=== PATIENT | male | born 1990 | race Caucasian/White ===

== ENCOUNTER 2016-09-14 20:22 | Emergency (ER) | payer BC, OTHER ==
--- NOTE | 2016-09-14 23:02 | ED NURSING NOTES ---
Clinical Report - Nurses [facility] [address] [place] [address] 09/14/2016 20:24 Patient: ARELY AUSTIN TRIAGE Triage time 20:Sep 14 2016. Acuity: LEVEL 3. Chief Complaint: SEIZURE (single episode). Alert. DUSTY COMA SCORE: [place] Coma Scale: 15- eyes open spontaneously (4); best verbal response- oriented x 4 (5); best motor response- obeys commands (6). --20:38 Jack Marcus R.N. 20:26 09/14/16. BP: 124/75. HR: 74. RR: 19. O2 saturation: 100% on room air. Temp: 98.5 F. Pain level now: 10. Additional comments: Abdominal Pain. --20:38 Jack Marcus R.N. Weight: 70.3 kg stated. Height/Length: 67 inches Per Patient. BMI: 24.3. --20:37 Jack Marcus R.N. Medications MiraLax Oral 1 tablespoon (just started today). --20:33 Jack Marcus R.N. Medication/allergy information source: the patient. --20:38 Jack Marcus R.N. Allergies Unknown. --23:15 Shagufta Silva. History Arrived by EMS. Historian: patient. Accompanied by mother. Primary physician (none). ( Seizure at the dinner table tonight. Pt states that he had one previous seizure 6 years ago. Mother states that pt developed a glazed look and appeared pale and was rubbing his stomach. Family state that the event lasted about 20 seconds.). This occurred just prior to arrival and today (about 45 minutes ago). Patient was last known well (about one hour ago). No injuries. He has recently been ill (abdominal pain). 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 PAST MEDICAL HX: Seizures. Immunizations: status is unknown. SOCIAL HX: Smoker- current status unknown (cigarette). Alcohol use; consumes one liquor. (once or twice per month). History of drug use: marijuana. (Daily). No infectious disease exposure. ABUSE ASSESSMENT: No report of abuse. FALL RISK ASSESSMENT: Fall risk assessment completed. No fall risk identified. NUTRITIONAL RISK ASSESSMENT: The nutritional risk assessment revealed no deficiencies. FUNCTIONAL ASSESSMENT: Functional assessment: no impairments noted. LEARNING NEEDS ASSESSMENT: The learning needs assessment revealed no barriers. SKIN INTEGRITY ASSESSMENT: Skin integrity risk assessment completed. No skin integrity risk identified. --20:38 Jack Marcus R.N. PROBLEMS: Seizure. --20:35 Jack Marcus R.N. ADDITIONAL SURGERIES: Hernia Repair. --20:35 Jack Marcus R.N. Interventions ID band on patient. To treatment room. --20:38 Jack Marcus R.N. PHYSICAL ASSESSMENT Ambulatory to room. GENERAL / NEURO / PSYCH: Alert. Oriented X 4. Speech within normal limits. Patient appears well-nourished. HEENT: No facial asymmetry noted. Mucous membranes are pink. RESPIRATORY: Respirations not labored. CVS: Normal sinus rhythm noted. GI / : Abdomen soft. Abdominal tenderness in the left upper quadrant. SKIN: Skin intact. Skin is warm and dry. Normal skin turgor. --20:39 Jack Marcus R.N. NURSING PROGRESS NOTES Patient gowned. Reassurance given. Patient identifiers checked. Call light placed in reach. Side rails up. Bed placed in lowest position. Brakes of bed on. Patient ready for evaluation- chart flagged and ED physician notified. --20:40 Jack Marcus R.N. 20:52 09/14/2016 Site #1 started prior to arrival by EMS via IV in the right antecubital space with an 20g angiocath, with aseptic technique and good blood return. Blood drawn: rainbow set. Labeled in the presence of the patient and sent to the lab. Saline lock flushed with 10 mL saline. --21:02 Jack Marcus R.N. EKG time: (8:59 PM). EKG was performed by a tech and shown to the ED physician. --21:02 Qamar Montilla transferred and report received. --21:20 Shagufta Silva 21:19 09/14/16. BP: 116/71. HR: 75. RR: 19 (regular and unlabored). O2 saturation: 96% on room air. Pain level now: 0/10. --21:20 Shagufta Silva 22:22 09/14/2016 Started bag #1 1000 mL IV Fluids IV NS (Saline); at 1000 mL/hr over 1 hour(s) via site #1 via IV pump. Allergies verified and confirmed 5 rights. IV patency established. IV site checked: no pain, redness, or swelling. IV flushed thoroughly pre- and post-medication administration. --22:22 Shagufta Silva 22:22 09/14/16. BP: 108/58. HR: 60. RR: 14. O2 saturation: 97% on room air. Pain level now: 0/10. --22:22 Shagufta Silva 22:35 09/14/16. BP: 102/57 taken while lying. HR: 49. RR: 17 (unlabored). O2 saturation: 97% on room air. --22:37 Qamar Montilla 22:37 09/14/16. BP: 103/67 taken while sitting. HR: 56. RR: 15. O2 saturation: 97% on room air. --22:38 Qamar Montilla 22:39 09/14/16. BP: 113/67 taken while standing. HR: 58. RR: 13. O2 saturation: 97% on room air. --22:39 Qamar Montilla 23:14 09/14/2016 IV Fluids IV NS Discontinued: bag #1 discontinued upon discharge. Total amount infused: 800 mL. IV patency established. IV site checked: no pain, redness, or swelling. IV flushed thoroughly. --23:15 Shagufta Silva 23:15 09/14/2016 Site #1 removed upon discharge. Catheter intact. Pressure dressing applied. --23:15 Shagufta Silva 23:15 09/14/2016 IV Saline Lock Drip IV Discontinued: bag #1 infused. Total amount infused: 0 mL. --23:15 Shagufta Silva. DISPOSITION / DISCHARGE 23:09/14/16. Departure time: 23:Sep 14 2016. Condition at departure: improved. The goals identified in the patient's plan of care were met. No learning barriers present. Discharge instructions provided and reviewed with the patient and family. Reviewed warnings (Patient verbalized awareness of warning s/sx listed in dc paperwork.). Reviewed medication(s) side effects, precautions, dosing and course information. Prescription(s) given to the patient (GoLytely, carafate, prilosec). Treatments reviewed. Reviewed referral to a primary care physician for followup. Patient verbalized understanding. Written instructions provided in Estonian. The patient was discharged by the physician. He was discharged home and accompanied by parent and family. He left the Emergency Department ambulatory and via private vehicle. Parent driving. FALL RISK ASSESSMENT: Fall risk assessment completed. No fall risk identified. --23:14 Shagufta Silva 23:12 09/14/16. BP: deferred. HR: deferred. RR: deferred. O2 saturation: deferred. Temp: deferred. Pain level now deferred. --23:14 Shagufta Silva. Locked/Released at 09/14/2016 23:35 by Shagufta Silva,
--- NOTE | 2016-09-14 23:02 | ED ORDER SUMMARY ---
..... Patient: ARELY AUSTIN OrderSheet [facility] VisitID: [id number] [address] [place] [address] 26y, M Registration Date/Time: 09/14/2016 ORDER SHEET Weight: 70.3 kg (stated) Allergies: Unknown GENERAL ORDERS: Virtual Customer Assistant (Continuous) (Seizure) (20:58 09/14/2016 Jaylene R.N. verbal order read back to Milton MUNIZ) (21:00 Opheliaelli R.N.) CMP Urgent (21:00 09/14/2016 Jaylene R.N. verbal order read back to Milton MUNIZ) (21:00 Jaylene R.N.) (Cancelled: Other21:50 Milton MUNIZ) UA-Culture if indicated Urgent (21:00 09/14/2016 Jaylene R.N. verbal order read back to Milton MUNIZ) (21:00 Opheliaelli R.N.) Pulse oximeter (21:00 09/14/2016 Jaylene R.N. verbal order read back to Milton MUNIZ) (21:00 Opheliaelli R.N.) EKG - ER Stat (21:00 09/14/2016 Jaylene R.N. verbal order read back to Milton MUNIZ) (21:00 omanelli R.N.) (21:02 SRedmond) Cardiac Panel Stat (21:50 09/14/2016 Milton MUNIZ) (Ack 21:53 ALawrence ER Tech1) (21:54 ALawrence ER Tech1) TSH Urgent (21:50 09/14/2016 Mitlon MUNIZ) (Ack 21:53 ALawrence ER Tech1) (21:54 ALawrence ER Tech1) Chest 2V Urgent (21:50 09/14/2016 Milton MUNIZ) (Ack 21:53 ALawrence ER Tech1) (22:14 MCampbell) Abdomen 1V Upright Urgent (21:50 09/14/2016 Milton MUNIZ) (Ack 21:53 ALawrence ER Tech1) (22:14 MCampbell) - (Orthostatics) (22:10 09/14/2016 Milton MUNIZ) (Ack 22:27 ALawrence ER Tech1) (22:35 [facility]) MEDICATION ORDERS: IV FLUIDS: IV Saline Lock (21:00 09/14/2016 Jaylene R.NKatharine verbal order read back to Milton MUNIZ) (21:02 Jaylene Cason) IV NS : initial bolus 1000 mL (1000 mL/hr), then none - for X1 (NOW); Routine (21:51 09/14/2016 Milton MUNIZ) (Ack 21:55 [facility] (22[facility] ORDER SHEET NOTES: [Electronically signed by Shagufta Silva (23:35 09/14/2016)] [Electronically signed by Mario Diego MD (21:40 09/15/2016)] [Electronically locked/signed by Shagufta Silva (23:35 09/14/2016)]
--- NOTE | 2016-09-14 23:02 | ED CLINICAL REPORT ---
Clinical Report - Physicians/Mid Levels Merged With [facility] [address] [place] [address] 09/14/2016 20:24 Patient: ARELY AUSTIN Time Seen: 21:45 Sep 14 2016. Historian- patient and family. CPT: ER phys charges level 4 (#[id number]). HISTORY OF PRESENT ILLNESS The patient has recovered. Chief Complaint: SINGLE SYNCOPAL EPISODE. This occurred just prior to arrival. Event was witnessed. (Says he passed out, went limp and had a few movements of the arms. Was pale. Lasted a minute then he woke right up and was asking what happened. No post-ictal symptoms.). Witnessed by family member. At time of event, he was sitting. The patient felt faint and collapsed. Brief seizure activity observed involving the right upper extremity and left upper extremity (minimal). The patient had preceding symptoms of light-headedness, dim vision, warmth and abdominal pain. He had preceding symptoms of moderate nausea (with diaphoresis.). Had a single episode. The episode was brief. No injuries noted. Currently he feels normal. Similar symptoms previously: Once (5 years ago). ( Did not see MD). Recent medical care: Not recently seen/assessed. REVIEW OF SYSTEMS No headache, dizziness, weakness, chest pain or palpitations. No vomiting, diarrhea, black stools, numbness or bloody stools. No fever, sore throat, difficulty breathing, difficulty with urination or skin rash. No enlarged lymph nodes or cough. The patient has had abdominal pain. Constipation on and off for the past year. Used caffeine to promote bowels and recently stopped all caffeine 5 days ago and has not had a BM since. Del had LUQ abdominal pain just prior to his spell. He notes this pain on and off and it seems to improve with eating. No hx of PUD but he suspects that may be what he had in the past. Recently started miralax. All systems otherwise negative, except as recorded above. PAST HISTORY GI disease. No history of seizure, heart disease, lung disease, renal disease or neurological disease. Has not had GI bleeding. No history of dysrhythmia. Medications: MiraLax Oral 1 tablespoon (just started today). SOCIAL HISTORY Light tobacco smoker (cigarette)- less than 1/2 a pack per day. Alcohol use. History of drug use: marijuana. ADDITIONAL NOTES The nursing notes have been reviewed. PHYSICAL EXAM Vital Signs: 09/14/2016 20:26 BP: 124/75. HR: 74. RR: 19. O2 saturation: 100%. Temp: 98.5 F. Pain level now: 310. Appearance: Alert. No acute distress. Eyes: Pupils equal, round and reactive to light. No nystagmus. Extraocular movements normal. ENT: Normal ENT inspection. TM's normal. Moist mucous membranes. Pharynx normal. Neck: Normal inspection. Neck supple. CVS: Normal heart rate and rhythm. Heart sounds normal. Pulses normal. Respiratory: No respiratory distress. Breath sounds normal. Abdomen: Soft and nontender. No mass present. Back: Normal inspection. Skin: Skin warm. Normal skin color. No rash. Extremities: Extremities exhibit normal ROM. No lower extremity edema. Neuro: Alert. Oriented X 3. Mood/affect normal. Speech normal. Cranial nerves normal (as tested). No cerebellar findings. No motor deficit. No sensory deficit. Reflexes normal. LABS, X-RAYS, AND EKG EKG: Normal sinus rhythm. Normal P waves. Normal QRS complex. Normal axis. Non-specific ST segment / T wave abnormalities. Prior EKG unavailable. The study has been interpreted contemporaneously. The study has been independently viewed by me. The EKG appears to be a good tracing. Chest X-ray: Normal Chest X-Ray. KUB: (Moderate stool). Views: erect AP. Technique: good. The X-rays were independently viewed by me. Prior films were not available for comparison. Laboratory Tests: CBC w Diff: (BENOIT: 09/14/2016 20:45) ( MsgRcvd 09/14/2016 22:21) Final results Test Result Flag Units (Reference) WHITE BLOOD COUNT 6.2 K/uL (4.5-11.5) RED BLOOD COUNT 4.89 M/uL (4.50-5.90) HEMOGLOBIN 14.9 gm/dL (13.5-17.5) HEMATOCRIT 43.3 % (41.0-53.0) MEAN CELL VOLUME 88 fL (80-100) MEAN CORPUSCULAR HGB 30 pg (26-34) MEAN CORPUSCULAR HGB CONC 34 g/dL (31-37) RED CELL DISTRIBUTION WIDTH 12.6 % (11.6-14.8) PLATELET COUNT 191 K/uL (150-400) NEUTROPHIL % 46.5 L % (50-75) LYMPH % 45.6 H % (25-40) MONO % 6.3 % (3-14) EOSINOPHIL % 1.0 % (0-4) BASOPHIL % 0.6 % (0-2) CHEM 13 PANEL: (BENOIT: 09/14/2016 20:45) ( MsgRcvd 09/14/2016 22:51) IP Test Result Flag Units (Reference) GLUCOSE 106 mg/dL (70-110) BUN 10 mg/dL (7-18) CREATININE 0.8 mg/dL (0.6-1.3) Estimated GFR >60 mL/min Estimated GFR- >60 mL/min Note: Persistent reduction over 3 months in eGFR<60 mL/min/1.73 m2 defines CKD. Patients with eGFR values>=60 mL/min/1.73 m2 may also have CKD if evidence ofpersistent proteinuria. Additional information may be foundat www.[email or web address]. SODIUM 142 mmol/L (136-145) POTASSIUM 4.0 mmol/L (3.5-5.1) CHLORIDE 103 mmol/L (98-107) CARBON DIOXIDE 28 mmol/L (21-32) CALCIUM 9.2 mg/dL (8.5-10.1) TOTAL PROTEIN 7.3 g/dL (6.4-8.2) ALBUMIN 4.2 g/dL (3.3-5.0) BILIRUBIN, TOTAL 0.9 mg/dL (0.0-1.0) ALKALINE PHOSPHATASE 65 U/L (46-116) AST (SGOT) 13 L U/L (15-37) ALT (SGPT) 20 U/L (12-78) MAGNESIUM 1.8 mg/dL (1.8-2.4) CPK 75 U/L (24-260) TROPONIN I <0.05 ng/mL (0.00-1.5) TROPONIN REFERENCE RANGE:<0.1 NEGATIVE0.1-1.5 INDETERMINANT>1.5 POSITIVE CMP: (BENOIT: 09/14/2016 20:45) ( MsgRcvd 09/14/2016 21:23) Final results Test Result Flag Units (Reference) GLUCOSE 105 mg/dL (70-110) BUN 9 mg/dL (7-18) CREATININE 0.8 mg/dL (0.6-1.3) Estimated GFR >60 mL/min Estimated GFR- >60 mL/min Note: Persistent reduction over 3 months in eGFR<60 mL/min/1.73 m2 defines CKD. Patients with eGFR values>=60 mL/min/1.73 m2 may also have CKD if evidence ofpersistent proteinuria. Additional information may be foundat [email or web address]. SODIUM 138 mmol/L (136-145) POTASSIUM 3.7 mmol/L (3.5-5.1) CHLORIDE 102 mmol/L (98-107) CARBON DIOXIDE 25 mmol/L (21-32) CALCIUM 8.9 mg/dL (8.5-10.1) TOTAL PROTEIN 7.3 g/dL (6.4-8.2) ALBUMIN 4.0 g/dL (3.3-5.0) BILIRUBIN, TOTAL 0.8 mg/dL (0.0-1.0) ALKALINE PHOSPHATASE 59 U/L (46-116) AST (SGOT) 12 L U/L (15-37) ALT (SGPT) 21 U/L (12-78) . PROGRESS AND PROCEDURES Course of Care: IV NS Pt does not likely have a seizure history. He clinically has vasovagal syncope due to GI induced vagal input. Patient/family counseled. Disposition: Discharged. Condition: stable. CLINICAL IMPRESSION Vasovagal syncope .12 lead EKG performed. (Due to transient abdominal pain.). Abdominal pain due to early PUD and constipation. INSTRUCTIONS Drink plenty of fluids. (Lay down if get nausea or sweats. Put legs up. Wait for symptoms to pass.). Warnings: Further evaluation is necessary. GENERAL WARNINGS: Return or contact your physician immediately if your condition worsens or changes unexpectedly, if not improving as expected, or if other problems arise. Your Current Medications: CONTINUE TAKING THE FOLLOWING MEDICATIONS: MiraLax Oral : 1 tablespoon, just started today. Prescription Medications: Carafate 1 gm tablets: take 1 orally four times daily (30 minutes before meals and at bedtime) for 10 days. Dispense forty (40). No refills. Substitution is permissible. Prilosec 40 mg capsules: take 1 capsule orally every day for 10 days. Dispense ten (10). No refill. Substitution is permissible. GoLytely 4 oz every 10 minutes until gone. # 1 jug. Follow-up: Follow up with your doctor in one week. Call for an appointment. Reason for referral: 1 year of constipation that is new. Follow up on pain and results of medications. Understanding of the discharge instructions verbalized by patient and family. (Electronically signed by Mario Diego MD 09/15/2016 21:40)
--- NOTE | 2016-09-14 23:02 | ED ORDER SUMMARY ---
..... Patient: ARELY AUSTIN OrderSheet [facility] VisitID: [id number] [address] [place] [address] 26y, M Registration Date/Time: 09/14/2016 ORDER SHEET Weight: 70.3 kg (stated) Allergies: Unknown GENERAL ORDERS: Key Ringer (Continuous) (Seizure) (20:58 09/14/2016 Jaylene R.N. verbal order read back to Milton MUNIZ) (21:00 Opheliaelli R.N.) CMP Urgent (21:00 09/14/2016 Jaylene R.N. verbal order read back to Milton MUNIZ) (21:00 Jaylene R.N.) (Cancelled: Other21:50 Milton MUNIZ) UA-Culture if indicated Urgent (21:00 09/14/2016 Jaylene R.N. verbal order read back to Milton MUNIZ) (21:00 Opheliaelli R.N.) Pulse oximeter (21:00 09/14/2016 Jaylene R.N. verbal order read back to Milton MUNIZ) (21:00 Opheliaelli R.N.) EKG - ER Stat (21:00 09/14/2016 Jaylene R.N. verbal order read back to Milton MUNIZ) (21:00 omanelli R.N.) (21:02 SRedmond) Cardiac Panel Stat (21:50 09/14/2016 Milton MUNIZ) (Ack 21:53 ALawrence ER Tech1) (21:54 ALawrence ER Tech1) TSH Urgent (21:50 09/14/2016 Milton MUNIZ) (Ack 21:53 ALawrence ER Tech1) (21:54 ALawrence ER Tech1) Chest 2V Urgent (21:50 09/14/2016 Milton MUNIZ) (Ack 21:53 ALawrence ER Tech1) (22:14 MCampbell) Abdomen 1V Upright Urgent (21:50 09/14/2016 Milton MUNIZ) (Ack 21:53 ALawrence ER Tech1) (22:14 MCampbell) - (Orthostatics) (22:10 09/14/2016 Milton MUNIZ) (Ack 22:27 ALawrence ER Tech1) (22:35 [facility]) MEDICATION ORDERS: IV FLUIDS: IV Saline Lock (21:00 09/14/2016 Jaylene R.NKatharine verbal order read back to Milton MUNIZ) (21:02 Jaylene Cason) IV NS : initial bolus 1000 mL (1000 mL/hr), then none - for X1 (NOW); Routine (21:51 09/14/2016 Milton MUNIZ) (Ack 21:55 [facility] ([facility] ORDER SHEET NOTES: [Electronically signed by Shagufta Silva (23:35 09/14/2016)] [Electronically signed by Mario Diego MD (21:40 09/15/2016)] [Electronically locked/signed by Shagufta Silva (23:35 09/14/2016)]
--- NOTE | 2016-09-15 00:22 | DIAGNOSTIC IMAGING REPORT ---
PROCEDURE: XR ABDOMEN 1 VIEW UPRIGHT INDICATION: ABDOMINAL PAIN TECHNIQUE: AP upright view. COMPARISON: None. FINDINGS: Nonspecific bowel gas pattern. Mild stool. No free air, mass or suspicious calcification. Bones are unremarkable. IMPRESSION: 1. Nonspecific bowel gas pattern.
--- NOTE | 2016-09-15 00:22 | DIAGNOSTIC IMAGING REPORT ---
PROCEDURE: XR CHEST 2 VIEW INDICATION: SYNCOPE, initial encounter TECHNIQUE: PA and lateral view. COMPARISON: None. FINDINGS: Lungs are clear. Cardiovascular structures are normal. Bony thorax is unremarkable. IMPRESSION: 1. Negative chest.
--- NOTE | 2016-09-15 21:40 | ED MED RECONCILIATION SUMMARY ---
Patient: ARELY AUSTIN Medication Reconciliation Report [facility] VisitID: [id number] [address] [place] [address] 26y, M Registration Date/Time: 09/14/2016 Weight: 70.3 kg Height/Length: 67 in. BMI: 24.3 ALLERGIES: Unknown The patient's Home Medications are listed below: CONTINUE TAKING THE FOLLOWING MEDICATIONS: MiraLax Oral 1 tablespoon, just started today The source(s) of the original Home Medication information: patient The following Medications were given to the patient in the Emergency Department: IV NS IV Fluids bolus 0, then 1000 mL/hr, administered: 09/14/2016 10:22:00 PM The following Medications were prescribed to the patient: GoLytely 4 oz every 10 minutes until gone. # 1 jug. -- Mario Diego MD Carafate 1 gm tablets: take 1 orally four times daily (30 minutes before meals and at bedtime) for 10 days. Dispense forty (40). No refills. Substitution is permissible. -- Mario Diego MD Prilosec 40 mg capsules: take 1 capsule orally every day for 10 days. Dispense ten (10). No refill. Substitution is permissible. -- Mario Diego MD
--- NOTE | 2016-09-15 21:40 | ED DISCHARGE INSTRUCTIONS ---
Patient: ARELY AUSTIN General Instructions [facility] VisitID: [id number] [address] [place] [address] 26y, M Registration Date/Time: 09/14/2016 Vasovagal syncope .12 lead EKG performed. (Due to transient abdominal pain.). Abdominal pain due to early PUD and constipation. INSTRUCTIONS Drink plenty of fluids. (Lay down if get nausea or sweats. Put legs up. Wait for symptoms to pass.). Warnings: Further evaluation is necessary. GENERAL WARNINGS: Return or contact your physician immediately if your condition worsens or changes unexpectedly, if not improving as expected, or if other problems arise. Your Current Medications: CONTINUE TAKING THE FOLLOWING MEDICATIONS: MiraLax Oral : 1 tablespoon, just started today. Prescription Medications: Carafate 1 gm tablets: take 1 orally four times daily (30 minutes before meals and at bedtime) for 10 days. Dispense forty (40). No refills. Substitution is permissible. Prilosec 40 mg capsules: take 1 capsule orally every day for 10 days. Dispense ten (10). No refill. Substitution is permissible. GoLytely 4 oz every 10 minutes until gone. # 1 jug. Follow-up: Follow up with your doctor in one week. Call for an appointment. Reason for referral: 1 year of constipation that is new. Follow up on pain and results of medications. Understanding of the discharge instructions verbalized by patient and family. ADDITIONAL INFORMATION Fainting:Vagal Reaction Fainting (syncope) is a temporary loss of consciousness ("passing out"). It occurs when blood flow to the brain is reduced. Your doctor believes that your episode was due to a vagal reaction. This condition is not a sign of serious disease. A vagal reaction is a reflex response that causes the pulse to slow down or the blood vessels to dilate. This causes the blood pressure to fall, reducing the blood flow to the brain if you are standing or sitting. That results in dizziness, near-fainting or fainting. Lying down usually stops the reaction within 60 seconds. This reflex response can occur during sudden fear, severe pain, emotional stress, overexertion, overheating, hunger, nausea or vomiting, prolonged standing or standing up after sitting or lying for a long time. Home Care: 1) Rest today and resume your normal activities as soon as you are feeling back to normal. 2) If you become light-headed or dizzy, lie down immediately or sit with your head lowered between your knees. Follow Up with your doctor as instructed. Get Prompt Medical Attention if any of the following occur: -- Another fainting spell occurs, which is not explained by the common causes listed above -- Chest, arm, neck, jaw, back or abdominal pain -- Shortness of breath -- Severe headache or seizure -- Blood in vomit, stools (black or red color) -- Unexpected vaginal bleeding -- Palpitations (very rapid or very slow or irregular heart beat) -- Signs of stroke: Weakness of an arm or leg or one side of the face Difficulty with speech or vision Extreme drowsiness, confusion, dizziness or fainting Sucralfate Oral tablet What is this medicine? SUCRALFATE (CHERELLE ignacio fate) helps to treat ulcers of the intestine. How should I use this medicine? Take this medicine by mouth with a glass of water. Follow the directions on the prescription label. This medicine works best if you take it on an empty stomach, 1 hour before meals. Take your doses at regular intervals. Do not take your medicine more often than directed. Do not stop taking except on your doctor's advice. Talk to your vegetable i farmworker regarding the use of this medicine in children. Special care may be needed. What side effects may I notice from receiving this medicine? Side effects that you should report to your doctor or health foster care therapist as soon as possible: allergic reactions like skin rash, itching or hives, swelling of the face, lips, or tongue difficulty breathing Side effects that usually do not require medical attention (report to your doctor or health foster care therapist if they continue or are bothersome): back pain constipation drowsy, dizzy dry mouth headache stomach upset, gas trouble sleeping What may interact with this medicine? antacid cimetidine digoxin ketoconazole phenytoin quinidine ranitidine some antibiotics like ciprofloxacin, norfloxacin, and ofloxacin theophylline thyroid hormones warfarin What if I miss a dose? If you miss a dose, take it as soon as you can. If it is almost time for your next dose, take only that dose. Do not take double or extra doses. Where should I keep my medicine? Keep out of the reach of children. Store at room temperature between 15 and 30 degrees C (59 and 86 degrees F). Keep container tightly closed. Throw away any unused medicine after the expiration date. What should I tell my health care provider before I take this medicine? They need to know if you have any of these conditions: kidney disease an unusual or allergic reaction to sucralfate, other medicines, foods, dyes, or preservatives or trying to get breast-feeding What should I watch for while using this medicine? Visit your doctor or health foster care therapist for regular check ups. Let your doctor know if your symptoms do not improve or if you feel worse. Antacids should not be taken within one half hour before or after this medicine. Omeprazole Magnesium Gastro-resistant tablet What is this medicine? OMEPRAZOLE (oh ME pray zol) prevents the production of acid in the stomach. It is used to treat the symptoms of heartburn. You can buy this medicine without a prescription. This product is not for long-term use, unless otherwise directed by your doctor or health foster care therapist. How should I use this medicine? Take this medicine by mouth. Follow the directions on the product label. If you are taking this medicine without a prescription, take one tablet every day. Do not use for longer than 14 days or repeat a course of treatment more often than every 4 months unless directed by a doctor or healthcare professional. Take your dose at regular intervals every 24 hours. Swallow the tablet whole with a drink of water. Do not crush, break or chew. This medicine works best if taken on an empty stomach 30 minutes before breakfast. If you are using this medicine with the prescription of your doctor or healthcare professional, follow the directions you were given. Do not take your medicine more often than directed. Talk to your vegetable i farmworker regarding the use of this medicine in children. Special care may be needed. What side effects may I notice from receiving this medicine? Side effects that you should report to your doctor or health foster care therapist as soon as possible: allergic reactions like skin rash, itching or hives, swelling of the face, lips, or tongue bone, muscle or joint pain breathing problems chest pain or chest tightness dark yellow or brown urine diarrhea dizziness fast, irregular heartbeat feeling faint or lightheaded fever or sore throat muscle spasm palpitations redness, blistering, peeling or loosening of the skin, including inside the mouth seizures tremors unusual bleeding or bruising unusually weak or tired yellowing of the eyes or skin Side effects that usually do not require medical attention (Report these to your doctor or health foster care therapist if they continue or are bothersome.): constipation dry mouth headache loose stools nausea What may interact with this medicine? Do not take this medicine with any of the following medications: atazanavir clopidogrel nelfinavir This medicine may also interact with the following medications: ampicillin certain medicines for anxiety or sleep certain medicines that treat or prevent blood clots like warfarin cyclosporine diazepam digoxin disulfiram iron salts phenytoin prescription medicine for fungal or yeast infection like itraconazole, ketoconazole, voriconazole saquinavir tacrolimus What if I miss a dose? If you miss a dose, take it as soon as you can. If it is almost time for your next dose, take only that dose. Do not take double or extra doses. Where should I keep my medicine? Keep out of the reach of children. Store at room temperature between 20 and 25 degrees C (68 and 77 degrees F). Protect from light and moisture. Throw away any unused medicine after the expiration date. What should I tell my health care provider before I take this medicine? They need to know if you have any of these conditions: black or bloody stools chest pain difficulty swallowing have had heartburn for over 3 months have heartburn with dizziness, lightheadedness or sweating liver disease stomach pain unexplained weight loss vomiting with blood wheezing an unusual or allergic reaction to omeprazole, other medicines, foods, dyes, or preservatives or trying to get breast-feeding What should I watch for while using this medicine? It can take several days before your heartburn gets better. Check with your doctor or health foster care therapist if your condition does not start to get better, or if it gets worse. Do not treat diarrhea with over the counter products. Contact your doctor if you have diarrhea that lasts more than 2 days or if it is severe and watery. Do not treat yourself for heartburn with this medicine for more than 14 days in a row. You should only use this medicine for a 2-week treatment period once every 4 months. If your symptoms return shortly after your therapy is complete, or within the 4 month time frame, call your doctor or health foster care therapist. You have been given the following additional information: Syncope, Vasovagal Sucralfate Oral tablet Omeprazole Magnesium Gastro-resistant tablet (Electronically signed by Mario Diego MD 09/15/2016 21:40)
--- NOTE | 2016-09-15 21:40 | ED MED RECONCILIATION SUMMARY ---
Patient: ARELY AUSTIN Medication Reconciliation Report [facility] VisitID: [id number] [address] [place] [address] 26y, M Registration Date/Time: 09/14/2016 Weight: 70.3 kg Height/Length: 67 in. BMI: 24.3 ALLERGIES: Unknown The patient's Home Medications are listed below: CONTINUE TAKING THE FOLLOWING MEDICATIONS: MiraLax Oral 1 tablespoon, just started today The source(s) of the original Home Medication information: patient The following Medications were given to the patient in the Emergency Department: IV NS IV Fluids bolus 0, then 1000 mL/hr, administered: 09/14/2016 10:22:00 PM The following Medications were prescribed to the patient: GoLytely 4 oz every 10 minutes until gone. # 1 jug. -- Mario Diego MD Carafate 1 gm tablets: take 1 orally four times daily (30 minutes before meals and at bedtime) for 10 days. Dispense forty (40). No refills. Substitution is permissible. -- Mario Diego MD Prilosec 40 mg capsules: take 1 capsule orally every day for 10 days. Dispense ten (10). No refill. Substitution is permissible. -- Mario Diego MD
--- NOTE | 2016-09-15 21:40 | ED DISCHARGE INSTRUCTIONS ---
Patient: ARELY AUSTIN General Instructions [facility] VisitID: [id number] [address] [place] [address] 26y, M Registration Date/Time: 09/14/2016 Vasovagal syncope .12 lead EKG performed. (Due to transient abdominal pain.). Abdominal pain due to early PUD and constipation. INSTRUCTIONS Drink plenty of fluids. (Lay down if get nausea or sweats. Put legs up. Wait for symptoms to pass.). Warnings: Further evaluation is necessary. GENERAL WARNINGS: Return or contact your physician immediately if your condition worsens or changes unexpectedly, if not improving as expected, or if other problems arise. Your Current Medications: CONTINUE TAKING THE FOLLOWING MEDICATIONS: MiraLax Oral : 1 tablespoon, just started today. Prescription Medications: Carafate 1 gm tablets: take 1 orally four times daily (30 minutes before meals and at bedtime) for 10 days. Dispense forty (40). No refills. Substitution is permissible. Prilosec 40 mg capsules: take 1 capsule orally every day for 10 days. Dispense ten (10). No refill. Substitution is permissible. GoLytely 4 oz every 10 minutes until gone. # 1 jug. Follow-up: Follow up with your doctor in one week. Call for an appointment. Reason for referral: 1 year of constipation that is new. Follow up on pain and results of medications. Understanding of the discharge instructions verbalized by patient and family. ADDITIONAL INFORMATION Fainting:Vagal Reaction Fainting (syncope) is a temporary loss of consciousness ("passing out"). It occurs when blood flow to the brain is reduced. Your doctor believes that your episode was due to a vagal reaction. This condition is not a sign of serious disease. A vagal reaction is a reflex response that causes the pulse to slow down or the blood vessels to dilate. This causes the blood pressure to fall, reducing the blood flow to the brain if you are standing or sitting. That results in dizziness, near-fainting or fainting. Lying down usually stops the reaction within 60 seconds. This reflex response can occur during sudden fear, severe pain, emotional stress, overexertion, overheating, hunger, nausea or vomiting, prolonged standing or standing up after sitting or lying for a long time. Home Care: 1) Rest today and resume your normal activities as soon as you are feeling back to normal. 2) If you become light-headed or dizzy, lie down immediately or sit with your head lowered between your knees. Follow Up with your doctor as instructed. Get Prompt Medical Attention if any of the following occur: -- Another fainting spell occurs, which is not explained by the common causes listed above -- Chest, arm, neck, jaw, back or abdominal pain -- Shortness of breath -- Severe headache or seizure -- Blood in vomit, stools (black or red color) -- Unexpected vaginal bleeding -- Palpitations (very rapid or very slow or irregular heart beat) -- Signs of stroke: Weakness of an arm or leg or one side of the face Difficulty with speech or vision Extreme drowsiness, confusion, dizziness or fainting Sucralfate Oral tablet What is this medicine? SUCRALFATE (CHERELLE ignacio fate) helps to treat ulcers of the intestine. How should I use this medicine? Take this medicine by mouth with a glass of water. Follow the directions on the prescription label. This medicine works best if you take it on an empty stomach, 1 hour before meals. Take your doses at regular intervals. Do not take your medicine more often than directed. Do not stop taking except on your doctor's advice. Talk to your watch assembly instructor regarding the use of this medicine in children. Special care may be needed. What side effects may I notice from receiving this medicine? Side effects that you should report to your doctor or health care coordination manager as soon as possible: allergic reactions like skin rash, itching or hives, swelling of the face, lips, or tongue difficulty breathing Side effects that usually do not require medical attention (report to your doctor or health care coordination manager if they continue or are bothersome): back pain constipation drowsy, dizzy dry mouth headache stomach upset, gas trouble sleeping What may interact with this medicine? antacid cimetidine digoxin ketoconazole phenytoin quinidine ranitidine some antibiotics like ciprofloxacin, norfloxacin, and ofloxacin theophylline thyroid hormones warfarin What if I miss a dose? If you miss a dose, take it as soon as you can. If it is almost time for your next dose, take only that dose. Do not take double or extra doses. Where should I keep my medicine? Keep out of the reach of children. Store at room temperature between 15 and 30 degrees C (59 and 86 degrees F). Keep container tightly closed. Throw away any unused medicine after the expiration date. What should I tell my health care provider before I take this medicine? They need to know if you have any of these conditions: kidney disease an unusual or allergic reaction to sucralfate, other medicines, foods, dyes, or preservatives or trying to get breast-feeding What should I watch for while using this medicine? Visit your doctor or health care coordination manager for regular check ups. Let your doctor know if your symptoms do not improve or if you feel worse. Antacids should not be taken within one half hour before or after this medicine. Omeprazole Magnesium Gastro-resistant tablet What is this medicine? OMEPRAZOLE (oh ME pray zol) prevents the production of acid in the stomach. It is used to treat the symptoms of heartburn. You can buy this medicine without a prescription. This product is not for long-term use, unless otherwise directed by your doctor or health care coordination manager. How should I use this medicine? Take this medicine by mouth. Follow the directions on the product label. If you are taking this medicine without a prescription, take one tablet every day. Do not use for longer than 14 days or repeat a course of treatment more often than every 4 months unless directed by a doctor or healthcare professional. Take your dose at regular intervals every 24 hours. Swallow the tablet whole with a drink of water. Do not crush, break or chew. This medicine works best if taken on an empty stomach 30 minutes before breakfast. If you are using this medicine with the prescription of your doctor or healthcare professional, follow the directions you were given. Do not take your medicine more often than directed. Talk to your watch assembly instructor regarding the use of this medicine in children. Special care may be needed. What side effects may I notice from receiving this medicine? Side effects that you should report to your doctor or health care coordination manager as soon as possible: allergic reactions like skin rash, itching or hives, swelling of the face, lips, or tongue bone, muscle or joint pain breathing problems chest pain or chest tightness dark yellow or brown urine diarrhea dizziness fast, irregular heartbeat feeling faint or lightheaded fever or sore throat muscle spasm palpitations redness, blistering, peeling or loosening of the skin, including inside the mouth seizures tremors unusual bleeding or bruising unusually weak or tired yellowing of the eyes or skin Side effects that usually do not require medical attention (Report these to your doctor or health care coordination manager if they continue or are bothersome.): constipation dry mouth headache loose stools nausea What may interact with this medicine? Do not take this medicine with any of the following medications: atazanavir clopidogrel nelfinavir This medicine may also interact with the following medications: ampicillin certain medicines for anxiety or sleep certain medicines that treat or prevent blood clots like warfarin cyclosporine diazepam digoxin disulfiram iron salts phenytoin prescription medicine for fungal or yeast infection like itraconazole, ketoconazole, voriconazole saquinavir tacrolimus What if I miss a dose? If you miss a dose, take it as soon as you can. If it is almost time for your next dose, take only that dose. Do not take double or extra doses. Where should I keep my medicine? Keep out of the reach of children. Store at room temperature between 20 and 25 degrees C (68 and 77 degrees F). Protect from light and moisture. Throw away any unused medicine after the expiration date. What should I tell my health care provider before I take this medicine? They need to know if you have any of these conditions: black or bloody stools chest pain difficulty swallowing have had heartburn for over 3 months have heartburn with dizziness, lightheadedness or sweating liver disease stomach pain unexplained weight loss vomiting with blood wheezing an unusual or allergic reaction to omeprazole, other medicines, foods, dyes, or preservatives or trying to get breast-feeding What should I watch for while using this medicine? It can take several days before your heartburn gets better. Check with your doctor or health care coordination manager if your condition does not start to get better, or if it gets worse. Do not treat diarrhea with over the counter products. Contact your doctor if you have diarrhea that lasts more than 2 days or if it is severe and watery. Do not treat yourself for heartburn with this medicine for more than 14 days in a row. You should only use this medicine for a 2-week treatment period once every 4 months. If your symptoms return shortly after your therapy is complete, or within the 4 month time frame, call your doctor or health care coordination manager. You have been given the following additional information: Syncope, Vasovagal Sucralfate Oral tablet Omeprazole Magnesium Gastro-resistant tablet (Electronically signed by Mario Diego MD 09/15/2016 21:40)
--- NOTE | 2016-09-15 21:40 | ED MAR SUMMARY ---
..... Medication Administration Record [facility] [address] [place] [address] Patient: ARELY AUSTIN Visit ID: [id number] 26y, M Weight: 70.3 kg Height/Length: 67 in BMI: 24.3 ALLERGIES: Unknown Start 22:22 09/14/2016 Shagufta Silva,, Stop 23:14 09/14/2016 Shagufta Silva, Medication Administered: IV NS (SALINE), Dose: IV Fluids over 1 hour(s), Rate: 1000 mL/hr, Dispensed: 1000 mL bag, Site: #1 right AC. Medication Ordered: IV NS : initial bolus 1000 mL (1000 mL/hr), then none - for X1 (NOW); Routine.
--- NOTE | 2016-09-15 21:40 | ED MAR SUMMARY ---
..... Medication Administration Record [facility] [address] [place] [address] Patient: ARELY AUSTIN Visit ID: [id number] 26y, M Weight: 70.3 kg Height/Length: 67 in BMI: 24.3 ALLERGIES: Unknown Start 22:22 09/14/2016 Shagufta Silva,, Stop 23:14 09/14/2016 Shagufta Silva, Medication Administered: IV NS (SALINE), Dose: IV Fluids over 1 hour(s), Rate: 1000 mL/hr, Dispensed: 1000 mL bag, Site: #1 right AC. Medication Ordered: IV NS : initial bolus 1000 mL (1000 mL/hr), then none - for X1 (NOW); Routine.
== END 2016-09-14 23:11 | disposition home or self-care (01) ==
LOC: ED SRH 20:22
DX: R55 Syncope and collapse (principal); R10.12 Left upper quadrant pain; K56.49 Other impaction of intestine; K27.9 Peptic ulcer, site unspecified, unspecified as acute or chronic, without hemorrhage or perforation; F17.210 Nicotine dependence, cigarettes, uncomplicated
CPT/HCPCS: 90100; 90616; 92610; 92720; 93140; 95059